=== PATIENT | male | born 1950 | race Caucasian/White ===

== ENCOUNTER → 2016-12-12 | Outpatient (CLI) | payer MEDICARE ==
[~2016-12-12] MED LIST: FENO48TA2; FLOVENT INHALER; HCTZ12.5T; MTF500T; NFD30TCR; OMEP20CA12; PRD20T PO; SLMFT1E; SLMFT1E INH
[2016-12-12 09:28] LABS: BASOPHILS # (AUTO) 0.1 10^3/uL (0.0-0.1); BASOPHILS % (AUTO) 1 % (0-10); EOSINOPHILS # (AUTO) 1.1 10^3/uL (0.0-0.3); EOSINOPHILS % (AUTO) 10 % (0-10); LYMPHOCYTES # (AUTO) 4.6 X 10^3 (1.0-4.0); LYMPHOCYTES % (AUTO) 40 % (12-44); MEAN CORPUSCULAR HEMOGLOBIN 26 PG (25-34); MEAN CORPUSCULAR HGB CONC 32 G/DL (32-36); MEAN CORPUSCULAR VOLUME 83 FL (80-99); MEAN PLATELET VOLUME 10.5 FL (7.4-10.4); MONOCYTES # (AUTO) 0.7 X 10^3 (0.0-1.0); MONOCYTES % (AUTO) 6 % (0-12); NEUTROPHILS # (AUTO) 5.1 X 10^3 (1.8-7.8); NEUTROPHILS % (AUTO) 44 % (42-75); PLATELET COUNT 236 10^3/uL (130-400); RETICULOCYTE % 1.05 % (0.50-2.40); WHITE BLOOD COUNT 11.7 10^3/uL (4.3-11.0)
[2016-12-12 09:32] LABS: PATH WILL NEED TO REVIEW SMEAR PATH TO REVIEW
[2016-12-12 09:56] LABS: BAND NEUTROPHILS 0 %; BASOPHILS % (MANUAL) 0 %; EOSINOPHILS % (MANUAL) 5 %; LYMPHOCYTES % (MANUAL) 30 %; NEUTROPHILS % (MANUAL) 50 %; REACTIVE LYMPHOCYTES 11 %
== END ==
LOC: RAD 09:12
PROVIDERS: ATTEND Nurse Practitioner
DX: D72.829 Elevated white blood cell count, unspecified (principal)
CPT/HCPCS: 36415; 85007; 85027; 85045

== ENCOUNTER → 2019-08-23 | Outpatient (CLI) | payer MEDICARE ==
[2019-08-23 10:45] LABS: ABSOLUTE RETIC # 63 10e9/L (24-90); BASOPHILS # (AUTO) 0.1 10^3/uL (0.0-0.1); BASOPHILS % (AUTO) 0 % (0-10); EOSINOPHILS # (AUTO) 0.8 10^3/uL (0.0-0.3); EOSINOPHILS % (AUTO) 6 % (0-10); HEMATOCRIT 46 % (40-54); LYMPHOCYTES # (AUTO) 4.1 X 10^3 (1.0-4.0); LYMPHOCYTES % (AUTO) 32 % (12-44); MEAN CORPUSCULAR HEMOGLOBIN 28 PG (25-34); MEAN CORPUSCULAR HGB CONC 33 G/DL (32-36); MEAN CORPUSCULAR VOLUME 85 FL (80-99); MEAN PLATELET VOLUME 10.2 FL (7.4-10.4); MONOCYTES # (AUTO) 0.7 X 10^3 (0.0-1.0); MONOCYTES % (AUTO) 5 % (0-12); NEUTROPHILS # (AUTO) 7.2 X 10^3 (1.8-7.8); NEUTROPHILS % (AUTO) 56 % (42-75); PLATELET COUNT 257 10^3/uL (130-400); RED CELL DISTRIBUTION WIDTH 13.4 % (10.0-14.5); RETICULOCYTE % 1.17 % (0.50-2.40); WHITE BLOOD COUNT 12.8 10^3/uL (4.3-11.0)
[2019-08-23 11:25] LABS: BAND NEUTROPHILS 0 %; EOSINOPHILS % (MANUAL) 6 %; LYMPHOCYTES % (MANUAL) 27 %; MONOCYTES % (MANUAL) 5 %; NEUTROPHILS % (MANUAL) 51 %
[2019-08-23 11:26] LABS: BASOPHILS % (MANUAL) 0 %; RBC MORPH NORMAL; REACTIVE LYMPHOCYTES 11 %
== END ==
LOC: LAB 10:19
PROVIDERS: ATTEND Internal Medicine
DX: D72.829 Elevated white blood cell count, unspecified (principal)
CPT/HCPCS: 36415; 85007; 85027; 85045

== ENCOUNTER → 2019-09-17 | Outpatient (CLI) | payer MEDICARE ==
[2019-09-17 10:03] LABS: CHOLESTEROL 218 MG/DL (< 200); HDL CHOLESTEROL 41 MG/DL (40-60); TRIGLYCERIDES 273 MG/DL (<150); VLDL CHOLESTEROL 55 MG/DL (5-40)
== END ==
LOC: LAB 09:23
PROVIDERS: ATTEND Physician Assistant
DX: D72.829 Elevated white blood cell count, unspecified (principal)
CPT/HCPCS: 36415; 80061; 88184; 88185

== ENCOUNTER 2021-10-31 15:13 | Emergency (ER) | payer MEDICARE ==
[~2021-10-31] VITALS: Ht 157 cm; Wt 76.2 kg
--- NOTE | 2021-10-31 15:28 | ED Lower Extremity ---
General Chief Complaint: Lower Extremity Stated Complaint: FALL LEFT FOOT/ANKLE PAIN Source: patient Exam Limitations: no limitations History of Present Illness Date Seen by Provider: Oct 31, 2021 Time Seen by Provider: 15:22 Initial Comments Patient is a 71-year-old male with a history of hypertension who presents ED by EMS for left ankle pain. Patient is a resident at [facility]. Patient had 2 falls today. He states he was walking to the bathroom quicker than normal and fell rotating his left ankle. Denies hitting his head, loss of consciousness or on blood thinners. Patient did fall at lunch today which was witnessed after talking to staff. Patient has been acting his normal self. History of falls in the past resulting in fractures. He denies of any abdominal pain, chest pain, dizziness, weakness, focal neural deficits, cough, fever, change in urination, hip pain. Patient has not been able to stand or bear weight on his left ankle. Swelling noted. Allergies and Home Medications Allergies Coded Allergies: No Known Drug Allergies (Verified Allergy, Mild, 05/04/08) Patient Home Medication List Home Medication List Reviewed: Yes Fenofibrate,Micronized (Tricor) 48 Mg Tablet, (Reported) Entered as Reported by: PAL FERRARA on 05/04/08 1507 Fluticasone/Salmeterol (Advair 100/50 Diskus) 100 Mcg/50 Mcg Inh, (Reported) Entered as Reported by: PAL FERRARA on 05/04/08 1507 Hydrochlorothiazide (Hydrochlorothiazide) 12.5 Mg Capsule, (Reported) Entered as Reported by: PAL FERRARA on 05/04/08 1505 Hydrocodone/Acetaminophen (Hydrocodone-Acetamin 5-325 mg) 1 Each Tablet, 1 TAB PO Q4H PRN for PAIN-MODERATE (5-7) Prescribed by: KORTNEY LOUIS on 10/31/21 1636 Metformin Hcl (Metformin 500 Mg) 500 Mg Tablet, (Reported) Entered as Reported by: PAL FERRARA on 05/04/08 1505 Nifedipine (Procardia Xl) 30 Mg Tab, (Reported) Entered as Reported by: PAL FERRARA on 05/04/08 1506 Omeprazole (Omeprazole) 20 Mg Capsule., (Reported) Entered as Reported by: PAL FERRARA on 05/04/08 1506 Prednisone (Prednisone) 20 Mg Tab, 20 MG PO DAILY Prescribed by: OMAR MELTON on 02/14/121737 Salmeterol Xinaf/Fluticasone (Advair 100 Mcg/50 Mcg) 1 Diskus Inhp, 0 INH Q12HR Prescribed by: OMAR MELTON on 02/14/121737 [Flovent Inhaler] , (Reported) Entered as Reported by: PAL FERRARA on 05/04/08 1507 Review of Systems Constitutional: No chills, No diaphoresis, No dizziness, No fever EENTM: No ear pain, No throat pain Respiratory: No cough, No dyspnea on exertion, No short of breath Cardiovascular: No chest pain, No edema Gastrointestinal: No abdominal pain, No constipation, No diarrhea Musculoskeletal: No back pain; joint pain, joint swelling, muscle pain Skin: No change in color, No change in hair/nails Past Fiklcso-Atufdw-Xkcwtm Hx Patient Social History Tobacco Use?: No Substance use?: No Alcohol Use?: No Pt feels they are or have been: No Immunizations Up To Date First/Initial COVID19 Vaccinat: utd Second COVID19 Vaccination Jorge: utd Past Medical History Surgery/Hospitalization HX: pmh: htn, dm 2, hyperlipidemia Reproductive Disorders: No Physical Exam Vital Signs Vital Signs - First Documented 10/31/21 15:15 Temp 36.8 Pulse 116 Resp 18 B/P (MAP) 97/79 (85) Pulse Ox 94 Capillary Refill : Height, Weight, BMI Height: '" Weight: lbs. oz. kg; BMI Method: General Appearance: WD/WN, no apparent distress HEENT: PERRL/EOMI, normal ENT inspection, TMs normal, pharynx normal Neck: non-tender, full range of motion, supple Cardiovascular: regular rate, rhythm, no edema, no gallop, no JVD Respiratory: chest non-tender, lungs clear, normal breath sounds, no respiratory distress Gastrointestinal: normal bowel sounds, non tender, soft, no organomegaly Ankles: left ankle bone tenderness, left ankle limited range of motion, left ankle pain, left ankle soft tissue tenderness Neurologic/Tendon: normal sensation, normal motor functions, normal tendon functions Neurologic/Psychiatric: 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, no motor/sensory deficits, alert, normal mood/affect, oriented x 3 Progress/Results/Core Measures Results/Orders My Orders Orders - NILE ZHAO Ankle, Left, 3 Views (10/31/21 15:20) Foot, Left, 3 Views (10/31/21 15:20) Hydrocodone/Apap 5/325 Tablet (Lortab 5 (10/31/21 16:15) Medications Given in ED Current Medications Medications Dose Ordered Sig/Corey Route Start Time Stop Time Status Last Admin Dose Admin Acetaminophen/ Hydrocodone Bitart 1 ea ONCE ONCE PO 10/31/21 16:15 10/31/21 16:16 DC 10/31/21 16:15 1 EA Vital Signs/I&O 10/31/21 10/31/21 15:15 16:54 Temp 36.8 36.8 Pulse 116 102 Resp 18 18 B/P (MAP) 97/79 (85) 124/93 Pulse Ox 94 98 Departure Communication (Admissions) Patient was discussed with Dr. Truong who recommends outpatient follow-up and will likely need surgery. Patient does ambulate with a walker and would likely benefit with surgery. Patient is currently living in a residential facility with staff. Discussed transfer back to facility and to schedule appointment for follow-up in the next few days. Patient was given a dose of pain medication here. Will discharge with pain medication. Post splint neurovascular intact. No evidence of compartment syndrome. Staff at [facility] were contacted regarding this. Patient does have staff at the facility to facilitate patient care. Impression Primary Impression: Ankle fracture Disposition: 01 HOME, SELF-CARE Condition: Stable Departure-Patient Inst. Decision time for Depature: 16:22 Referrals: APARNA TRUONG MD, JOHN D MD (PCP/Family) Primary Care Physician Patient Instructions: Ankle Fracture ED Add. Discharge Instructions: Recommend contacting Dr. Truong for follow-up visit in the office. Provided number in discharge instructions. Patient will likely need surgery. Will discharge with pain medication. This is nonweightbearing. Recommend assistance at home. All discharge instructions reviewed with patient and/or family. Voiced understanding. Scripts Hydrocodone/Acetaminophen (Hydrocodone-Acetamin 5-325 mg) 1 Each Tablet 1 TAB PO Q4H PRN for PAIN-MODERATE (5-7), #14 TAB Prov: NILE ZHAO 10/31/21 NILE ZHAO 1, 2021 15:28
--- NOTE | 2021-10-31 15:58 | Diagnostic Imaging Report ---
INDICATION: Left ankle pain. AP, oblique and lateral views of the left ankle obtained at 3:25 p.m. There is osteopenia. There is an acute oblique fracture of the distal fibula just above the ankle joint, with about 4 mm of displacement. There is a horizontal fracture of the medial most of the distal tibia with about 5 mm of displacement. There is mild lateral subluxation of the talus relative to the distal tibia. IMPRESSION: Acute distal tibial and fibular fractures as described above with mild displacement and mild subluxation of the talus relative to the tibia. Underlying osteopenia. Dictated by: Dictated on workstation # [id number]
--- NOTE | 2021-10-31 15:59 | Diagnostic Imaging Report ---
INDICATION: Left foot pain post injury. AP, oblique, lateral views of the left foot are obtained at 3:28 PM. There is osteopenia. The tarsal bones and metacarpals and phalanges appear intact. There is no acute fracture of the left foot. There are fractures involving the distal tibia and fibula, see description of the left ankle series. IMPRESSION: Osteopenia. No acute fracture of the bones of the foot. There are left distal tibial and fibular fracture, see separate dictation for left ankle. Dictated by: Dictated on workstation # [id number]
[2021-10-31] MEDS ORDERED: HYDROcodone/APAP 5 MG/325 MG (LORTAB) TAB PO ONE (16:15)
[2021-10-31] MEDS ORDERED: ACHD5005 PO ×2 (16:29→16:35)
[2021-10-31 16:54] VITALS: BP 124/93
== END 2021-10-31 16:54 | disposition home or self-care (01) ==
LOC: EDUNIT# 15:13 → ER 15:14
DX: S82.302A Unspecified fracture of lower end of left tibia, initial encounter for closed fracture (principal); S82.432A Displaced oblique fracture of shaft of left fibula, initial encounter for closed fracture; I10 Essential (primary) hypertension; E11.9 Type 2 diabetes mellitus without complications; E78.5 Hyperlipidemia, unspecified; Z79.899 Other long term (current) drug therapy; X50.1XXA Overexertion from prolonged static or awkward postures, initial encounter
CPT/HCPCS: 29515; 73610; 73630

== ENCOUNTER → 2021-11-01 | Outpatient (CLI) | payer MEDICARE ==
[~2021-11-01] MED LIST changes: +ACHD5005 PO; +ALBU2.5V4 INH; +GLBR5T PO; +HYDR12.56 PO; +NIFE30TA2 PO; +OXYC5TAB PO; +POTA-179 PO; +SIMV40TA25 PO
== END ==
LOC: ORTHO 13:19
PROVIDERS: ATTEND Orthopaedic Surgery
DX: S82.842A Displaced bimalleolar fracture of left lower leg, initial encounter for closed fracture (principal); X58.XXXA Exposure to other specified factors, initial encounter
CPT/HCPCS: 99203

== ENCOUNTER 2021-11-02 05:32 | Outpatient (CLI) | payer MEDICARE ==
[~2021-11-02] VITALS: Ht 157.5 cm; Wt 76.4 kg
[~2021-11-02 05:32] MED LIST changes: -ALBU2.5V4 INH; -GLBR5T PO; -HYDR12.56 PO; -NIFE30TA2 PO; -OXYC5TAB PO; -POTA-179 PO; -SIMV40TA25 PO
[2021-11-02] MEDS ORDERED: SIMV40TA25 PO (10:08)
[2021-11-02] MEDS ORDERED: GLBR5T PO (10:08)
[2021-11-02] MEDS ORDERED: NIFE30TA2 PO (10:08)
[2021-11-02] MEDS ORDERED: ALBU2.5V4 INH (10:08)
[2021-11-02] MEDS ORDERED: POTA-179 PO (10:08)
[2021-11-02] MEDS ORDERED: HYDR12.56 PO (10:08)
== END 2021-11-02 10:18 | disposition home or self-care (01) ==
LOC: PREOP 05:32
PROVIDERS: ATTEND Orthopaedic Surgery
DX: Z01.818 Encounter for other preprocedural examination (principal)

== ENCOUNTER 2021-11-05 08:32 | Day surgery (SDC) | payer MEDICARE ==
[2021-11-05] VITALS (11 sets, daily range): BP systolic 106–141; BP diastolic 71–127
[~2021-11-05] VITALS: Ht 157.9 cm; Wt 76.4 kg
[~2021-11-05 08:32] MED LIST changes: +ALBU2.5V4 INH; +GLBR5T PO; +HYDR12.56 PO; +NIFE30TA2 PO; +POTA-179 PO; +SIMV40TA25 PO
--- NOTE | 2021-11-05 08:39 | Progress Note-Pre Operative ---
Pre-Operative Progress Note H&P Reviewed The H&P was reviewed, patient examined and no changes noted. Date Seen by Provider: Nov 05, 2021 Time Seen by Provider: 08:35 Date H&P Reviewed: Nov 05, 2021 Time H&P Reviewed: 08:35 Pre-Operative Diagnosis: Left Bimalleolar Ankle Fracture APARNA TRUONG MD Nov 05, 2021 08:39
[2021-11-05] MEDS ORDERED: ceFAZolin 2 GM IV Premixed 50 ML IV ONE (08:45)
[2021-11-05] MEDS: LACTATED RINGERS 1,000 ML IV PRN ×2 (08:55→10:51)
[2021-11-05] MEDS ORDERED: proPOfol 200 MG/20 ML (DIPRIVAN) VIAL IV ONE (09:09)
[2021-11-05] MEDS ORDERED: fentaNYL INJ 100 MCG/2 ML AMP ONE ×2 (09:09→10:48)
[2021-11-05] MEDS ORDERED: LIDOCAINE PF 2% 5 ML (XYLOCAINE) VIAL ONE (09:09)
[2021-11-05] MEDS ORDERED: BUPIVACAINE 0.5% 30 ML (SENSORCAINE) VIAL ONE (10:29)
[2021-11-05] MEDS ORDERED: SEVOFLURANE (ULTANE) 15 ML INHAL SOLN ONE ×2 (10:46→10:47)
[2021-11-05] MEDS ORDERED: ONDANSETRON 4 MG/2 ML (SDV) Z0FRAN ONE (10:48)
[2021-11-05] MEDS ORDERED: OXYC5TAB PO (11:12)
[2021-11-05] MEDS ORDERED: MEPERIDINE (DEMEROL) INJ 50 MG/ML ONE (11:24)
--- NOTE | 2021-11-05 11:26 | Operative Report - Ortho ---
Operative Report Surgeon (s)/Photonics Engineering Technician (s) Surgeon APARNA TRUONG MD Photonics Engineering Technician n/a Pre-Operative Diagnosis Left Bimalleolar Ankle Fracture Post-Operative Diagnosis same Operative Report Date of Procedure: Nov 05, 2021 Name of Procedure Performed: Open reduction and internal fixation of left bimalleolar ankle fracture Description & Findings After obtaining informed consent and marking the patient, patient did receive intravenous antibiotics. Taken to the operating room and general anesthesia was induced. Surgical timeout was taken. The left lower extremity was prepped and draped in the usual sterile fashion. Attention was initially turned to the fibula fracture, incision was made centered over the fracture. Dissection was carried down to the fracture and a periosteal elevator was used to expose the fibula proximally and distally. The fracture was provisionally reduced using clamps. A [employer] distal fibular plate was selected and placed. A wire was placed distally to position the plate. A nonlocking screw was placed in the diaphysis of the fibula. A nonlocking screw was then placed distally. C-arm demonstrated good position of the plate with near anatomic reduction of the fracture. Locking screws were used to fill the distal holes of the plate and the distal nonlocking screw was removed and a locking screw was used to replace it. Two additional locking screws were placed in the proximal portion of the plate. Attention was turned to the medial side. The medial malleolar fracture was in acceptable position. 2 wires were placed percutaneously through the medial ma lleolar fragment and across the fracture site. C-arm was used to confirm position of the wires. After drilling the distal cortex, 2 4.0 mm cannulated screws were then placed over the wires. The anterior one measured 28 mm and the posterior one was 42 mm. Wires were removed. Final C-arm images were obtained in the AP, mortise, and lateral views and demonstrated appropriate reduction of the fractures and hardware in good position. Images were transferred to PACS. Wounds were irrigated with normal saline. Closed with 2-0 vicryl, 3-0 vicryl, and a combination of 3-0 and 4-0 nylon. Wounds were injected with local anesthetic. Dressed with xeroform, 4x4s, ABD, cast padding, soft roll, posterior splint, and CORTNEY wrap. Patient tolerated the procedure well and was stable to the recovery room. Anesthesia Type General Estimated Blood Loss 100 mL Specimen(s) collected/removed None APARNA TRUONG MD Nov 05, 2021 11:26
--- NOTE | 2021-11-05 11:26 | Diagnostic Imaging Report ---
Indication: Fluoroscopy for left ankle ORIF. Fluoroscopy was provided during left ankle surgery. 69 seconds of fluoroscopic time was utilized. 3-D images were obtained demonstrating lateral plate and numerous screws transfixing distal fibula. There are 2 partially threaded screws transfixing the medial malleolus. Alignment appears anatomic. IMPRESSION: Fluoroscopy during left ankle ORIF. Dictated by: Dictated on workstation # [id number]
--- NOTE | 2021-11-05 11:27 | Anesthesia-General Post-Op ---
General Patient Condition Mental Status/LOC: Same as Preop Cardiovascular: Satisfactory Nausea/Vomiting: Absent Respiratory: Satisfactory Pain: Controlled Complications: Absent Post Op Complications Complications None Follow Up Care/Instructions Patient Instructions None needed. Anesthesia/Patient Condition Patient Condition Patient is doing well, no complaints, stable vital signs, no apparent adverse anesthesia problems. No complications reported per nursing. RJ MAN CRNA Nov 05, 2021 11:27
[2021-11-05] MEDS ORDERED: ONDANSETRON 4 MG/2 ML (SDV) Z0FRAN IVP PRN (11:30)
[2021-11-05] MEDS ORDERED: morphine INJ 10 MG/ML 1ML (SYR OR VIAL) IVP ONE (11:30)
[2021-11-05] MEDS ORDERED: MEPERIDINE (DEMEROL) INJ 50 MG/ML IVP ONE (11:30)
[2021-11-05] MEDS ORDERED: fentaNYL INJ 100 MCG/2 ML AMP IVP ONE (11:30)
== END 2021-11-05 13:45 | disposition home or self-care (01) ==
LOC: SDC 08:32
PROVIDERS: ATTEND Orthopaedic Surgery
DX: S82.842A Displaced bimalleolar fracture of left lower leg, initial encounter for closed fracture (principal); K21.9 Gastro-esophageal reflux disease without esophagitis; E11.9 Type 2 diabetes mellitus without complications; J45.909 Unspecified asthma, uncomplicated; I10 Essential (primary) hypertension; E78.5 Hyperlipidemia, unspecified; K59.09 Other constipation; Q89.9 Congenital malformation, unspecified; Z79.899 Other long term (current) drug therapy; Z87.891 Personal history of nicotine dependence; Z79.84 Long term (current) use of oral hypoglycemic drugs; Z83.3 Family history of diabetes mellitus; Z80.9 Family history of malignant neoplasm, unspecified
CPT/HCPCS: 76000; 82947; 87081

== ENCOUNTER → 2021-12-11 | Outpatient (CLI) | payer MEDICARE ==
[~2021-12-11] MED LIST changes: +OXYC5TAB PO
--- NOTE | 2021-12-11 11:50 | Diagnostic Imaging Report ---
INDICATION: Postop followup for ankle fracture on the left. COMPARISON: 10/31/2021. EXAMINATION: Left ankle, 3 views. FINDINGS: There is a sideplate with bone screws along the distal fibula as well as two cannulated bone screws in the medial malleolus. The overall alignment of the bimalleolar fracture is good. The ankle mortise shows good alignment. IMPRESSION: Satisfactory appearing postop images with open reduction and fixation of the bimalleolar fracture. Dictated by: Dictated on workstation # [id number]
== END ==
LOC: ORTHO 09:59
PROVIDERS: ATTEND Orthopaedic Surgery
DX: Z09 Encounter for follow-up examination after completed treatment for conditions other than malignant neoplasm (principal); Z98.890 Other specified postprocedural states
CPT/HCPCS: 73610

== ENCOUNTER → 2022-01-15 | Outpatient (CLI) | payer MEDICARE ==
--- NOTE | 2022-01-15 12:12 | Diagnostic Imaging Report ---
HISTORY: Postop left ankle. COMPARISON: 12/11/2021. TECHNIQUE: Three views of the left ankle. FINDINGS: There is internal fixation of the distal left fibula with a lateral plate and multiple screws. There is internal fixation of the medial malleolus with two cannulated partially threaded screws. Alignment appears stable. No hardware complication is seen. Ankle mortise is symmetric. No new fracture is seen. There is mild soft tissue swelling about the ankle. IMPRESSION: Internal fixation of the bimalleolar fracture with no hardware complication seen. Dictated by: Dictated on workstation # [id number]
== END ==
LOC: ORTHO 10:09
PROVIDERS: ATTEND Orthopaedic Surgery
DX: Z47.89 Encounter for other orthopedic aftercare (principal); Z98.890 Other specified postprocedural states
CPT/HCPCS: 73610

== ENCOUNTER → 2022-02-19 | Outpatient (CLI) | payer MEDICARE ==
--- NOTE | 2022-02-19 11:23 | Diagnostic Imaging Report ---
INDICATION: Postoperative follow-up. Left ankle ORIF. COMPARISON: 01/15/2022 FINDINGS: 3 radiographic views of the left ankle were obtained. Postsurgical changes of previous ORIF are again identified. Orthopedic side plate and screws are seen traversing the lateral margins of the distal fibula. 2 partially threaded screws are also seen traversing the medial malleolus of the distal tibia. Fracture fragments are in stable alignment. No unexpected radiopaque foreign bodies are seen. No new acute osseous abnormality is identified. IMPRESSION: 1. Stable postoperative changes to the left ankle as above. Dictated by: Dictated on workstation # [id number]
== END ==
LOC: ORTHO 10:05
PROVIDERS: ATTEND Orthopaedic Surgery
DX: Z47.89 Encounter for other orthopedic aftercare (principal); Z98.890 Other specified postprocedural states
CPT/HCPCS: 73610; G0463; 99213

== ENCOUNTER → 2022-05-28 | Outpatient (CLI) | payer MEDICARE ==
--- NOTE | 2022-05-28 14:21 | Diagnostic Imaging Report ---
INDICATION: Left-sided rib pain. TIME OF EXAM: 1:52 PM 3 views left-sided ribs were obtained. There is slight cortical irregularity involving the left 5th posterior lateral rib. There is also some mild irregularity involving left lateral 7th rib. Age-indeterminate fractures cannot be excluded. No displaced fractures are seen. IMPRESSION: Age-indeterminate left-sided nondisplaced fractures. Dictated by: Dictated on workstation # [id number]
== END ==
LOC: RAD 13:35
PROVIDERS: ATTEND Physician Assistant
DX: S22.32XA Fracture of one rib, left side, initial encounter for closed fracture (principal); X58.XXXA Exposure to other specified factors, initial encounter
CPT/HCPCS: 71100